=== PATIENT | male | born 1970 | race Hispanic/Latino ===

== ENCOUNTER 2017-06-04 13:11 | Emergency (ER) | payer OTHER, SELFPAY ==
--- NOTE | 2017-06-04 14:34 | RAD ---
LEFT FOOT 3 VIEWS: HISTORY: Foot pain. FINDINGS: There is chronic deformity to the tuft of the distal phalanx of the great toe. Calcaneal spurs are p resent. There is some bony exostosis seen on the dorsal side of the foot at the level of the metatar sals. This is seen on the lateral view. This is probably related to the first metatarsal. IMPRESSION: No acute findings. POS: [facility]
[2017-06-04 15:39] LABS: #Eosinphils 0.4 thou/uL (0.0-0.7); #Lymphocytes 1.3 thou/uL (1.20-3.40); #Monocytes 0.5 thou/uL (0.11-0.59); #Neutrophils 8.7 thou/uL (1.40-6.50); %Basophils 0.2 % (0.0-1.0); %Lymphocytes 11.8 % (21.0-51.0); %Monocytes 4.7 % (0.0-10.0); Hematocrit 44.2 % (42.0-52.0); Mean Platelet Volume 8.1 fL (7.4-10.4); Red Blood Cell (RBC) Count 5.36 mill/uL (4.70-6.10); White Blood Cell (WBC) Count 10.9 thou/uL (4.8-10.8)
--- NOTE | 2017-06-04 15:55 | RAD ---
PORTABLE CHEST: 06/04/17 HISTORY: Dyspnea. COMPARISON: 11/23/16 study. The heart size appears slightly enlarged. The aorta is tortuous. The lungs are clear of infiltrates. There are no signs of failure. IMPRESSION: Mild cardiomegaly. POS: [facility]
[2017-06-04 16:02] LABS: ALT (SGPT) 27 U/L (8-55); AST (SGOT) 24 U/L (5-34); Alkaline Phosphatase 117 U/L (40-150); Anion Gap 12 mmol/L (10-20); BUN (Urea Nitrogen) 17 mg/dL (8.9-20.6); Bilirubin, Total 0.6 mg/dL (0.2-1.2); CK (CPK) 255 U/L (30-200); Calc. Creatinine Clearance 0 mL/min (70-130); Carbon Dioxide 25 mmol/L (22-29); Chloride 105 mmol/L (98-107); Estimated GFR-MDRD 75; Globulin 3.7 g/dL (2.4-3.5); Protein, Total 7.6 g/dL (6.0-8.3)
[2017-06-04 16:07] LABS: Troponin I Less than 0.010 ng/mL (< 0.028)
[2017-06-04 17:26] LABS: Bilirubin Negative (Negative); Blood, Urine Negative (Negative); Glucose, Urine (Dipstick) Negative (Negative); Ketone, Urine Negative (Negative); Nitrite Negative (Negative); Protein, Urine (Dipstick) Trace mg/dL (Neg-Trace)
[2017-06-04] MEDS ORDERED: Morphine 4 MG/ML VIAL ONE (18:25)
--- NOTE | 2017-06-04 18:48 | MRI ---
MRI OF THE LUMBAR SPINE WITH AND WITHOUT CONTRAST 06/04/17 INDICATION: Cauda equina syndrome with low back pain and left foot numbness. TECHNIQUE: Multiplanar and multisequence MR images were obtained of the lumbar spine with and without contrast u tilizing 20 mL of Multihance. FINDINGS: There is diffuse epidural lipomatosis of the lumbar spine narrowing the central canal of the lumbar s pine. There is a focus of T2 hyperintensity that causes some displacement of the nerve roots at the L2 vert ebral level on image 16 of series 5 and image 10 of series 2 measuring 10 mm in its greatest cranioca udad dimension and 7 mm in its greatest mediolateral dimensions with no appreciable enhancement. This lesion may be related to some flow related artifacts from displacement of the roots as they are exte nding off of the cauda equina; however, small arachnoid cyst, dermoid or epidermoid tumor cannot be e ntirely excluded. There is a focus of T2 hyperintensity and heterogeneous T1 signal intensity enhancement involving the left pedicle of L2 most suspicious for hemangioma. Additional smaller hemangioma seen at T12. The co nus is seen to terminate at L1. At the L5-S1 level, there is a small central protrusion causing effacement of the ventral subarachnoi d space. There is a broad based disc bulge and associated facet hypertrophy inducing mild bilateral n eural foraminal narrowing. At L4-5, there is a broad based bulge with superimposed central protrusion and ligamentum flavum hype rtrophy inducing moderate central canal narrowing with moderate bilateral neural foraminal narrowing. At L3-4, there is a broad based bulge with facet hypertrophy inducing mild to moderate right and mode rate left neural foraminal narrowing. There is mild central canal narrowing at this level. At L2-3, there is a broad based bulge with facet hypertrophy inducing mild bilateral neural foraminal narrowing. At L1-2, there is no appreciable central canal or neural foraminal narrowing. IMPRESSION: 1. Epidural lipomatosis, broad based disc bulge, central disc protrusion and facet hypertrophy i nduces moderate central canal narrowing at L4-5 with moderate bilateral neural foraminal narrowing. 2. Multilevel central canal narrowing of the lumbar spine due to epidural lipomatosis. 3. T2 hyperintense, T1 hypointense nonenhancing intradural/extramedullary lesion seen at the L2 vertebral body level may reflect flow related artifact involving roots of the lumbar spine; however, entities such as arachnoid cyst or dermoid/epidermal tumor cannot be entirely excluded. Short term MR followup is recommended (3 to 6 months). POS: [facility]
--- NOTE | 2017-06-04 20:27 | CON ---
This is Tamara Saenz, Physician Indexer, with Neurosurgery Service. DATE OF CONSULTATION: 06/04/2017 HISTORY OF PRESENT ILLNESS: The patient is a 47-year-old male with a past medical history of hypertension and enlarged heart, not currently on any medications, who presented to the Emergency Department for numbness and weakness in the left foot, which began 2 days ago. The patient reports a long history of low back pain, which began many years ago after a lifting injury at work. He reports he has baseline chronic pain in his low back that is not significantly changed over the past several days. He denies any radicular leg pain. Numbness is primarily located over the top of the left foot and he has inability to dorsiflex the left foot. The patient also reports intermittent numbness and tingling in the saddle region; however, he reports this has been intermittent for years and he has had no appreciable numbness or tingling in the groin or saddle region over the last 2 weeks. He denies any bowel or bladder dysfunction. The patient was evaluated with lumbar MRI for r/o cauda equina. MRI was notable for multilevel degenerative disk disease, most increased over L4-L5 and L3-L4. There is moderate amount of central canal stenosis at L4-L5. PAST MEDICAL HISTORY: Hypertension "enlarged heart," chronic back pain, coronary artery disease with prior acute AL. PAST SURGICAL HISTORY: He denies any prior surgical history. SOCIAL HISTORY: The patient does not drink or use any drugs. He smokes one- half pack per day for the last 20 years. FAMILY HISTORY: Noncontributory. ALLERGIES: The patient has no known drug allergies. REVIEW OF SYSTEMS: Per HPI. PHYSICAL EXAM- BP elevate 170/122, remaider VS wnl NAD, Comfortable sitting in chair in ER room 11 NCAT PERRL, EOMI, Scerla white OP clear, normal voice Neck supple, NTTP, no meningismus or nuchal rigidity Cardiac RRR. Lungs CTAB MSK- Moves all 4s, focal weakness with dorsiflexion of the left foot, no reflex assymetry NEURO- Foot drop gait on the left, normal CN exam, negative hoffmans, negative clonus DIAGNOSTIC STUDIES: Lumbar MRI with and without contrast, epidural lipomatosis , degenerative disk disease with broad based disk bulge and central disk protrusion with moderate L4-L5 central canal narrowing and moderate bilateral neural foraminal narrowing. ASSESSMENT: Lumbar degenerative disk disease, lumbar stenosis with myelopathy/ left foot drop. PLAN: I have discussed the patient's presentation, exam and imaging with Dr. Salazar. We will plan to start the patient on a Medrol Dosepak and follow along closely with repeat exam and office follow up early this week. I will arrange. I have recommended an AFO brace, which the patient should wear to avoid any falls. He has been provided with a Rx for which is was advised to take to [facility] on tuesday. The patient is amenable to this plan and he will reach out to us for any additional questions or concerns. TEMI
--- NOTE | 2017-06-14 13:23 | EKG ---
Test Reason : Blood Pressure : / mmHG Vent. Rate : 090 BPM Atrial Rate : 090 BPM P-R Int : 132 ms QRS Dur : 100 ms QT Int : 392 ms P-R-T Axes : 071 -05 -15 degrees QTc Int : 479 ms Normal sinus rhythm Normal ECG Confirmed by ALFONSO HESS ([id number]), clinical editor NANETTE DEMARCO ([id number]) on 06/14/2017 1:23:23 PM Referred By: Confirmed By:ALFONSO HESS
== END 2017-06-04 20:39 | disposition home or self-care (01) ==
LOC: ERS 13:11
DX: M21.372 Foot drop, left foot (principal); M51.86 Other intervertebral disc disorders, lumbar region; I25.10 Atherosclerotic heart disease of native coronary artery without angina pectoris; I25.2 Old myocardial infarction; I10 Essential (primary) hypertension; F17.210 Nicotine dependence, cigarettes, uncomplicated; Z87.01 Personal history of pneumonia (recurrent)
CPT/HCPCS: 71010; 72158; 80053; 81003; 82550; 82553; 83880; 84484; 85025; 93005; 94760; 96374; J2270

== ENCOUNTER 2019-06-13 15:13 | Emergency (ER) | payer OTHER, SELFPAY ==
--- NOTE | 2019-06-13 16:42 | RAD ---
EXAM: Chest PA and lateral: HISTORY: Cough COMPARISON: 06/04/2017 FINDINGS: Heart: Cardiomegaly. Aorta: Unremarkable Pulmonary vessels: Normal Costophrenic angles: Costophrenic angles are clear. Lungs: Patchy interstitial and alveolar opacities, likely representing edema and/or infiltrate Pneumothorax: No pneumothorax Osseous structures: No osseous abnormalities IMPRESSION: Patchy interstitial and alveolar opacities likely due to edema and/or infiltrate
[2019-06-13] MEDS ORDERED: Lidocaine 1% PF 5 ML VIAL ONE (16:49)
[2019-06-13] MEDS ORDERED: Ketorolac Tromethamine 60 MG/2 ML VIAL ONE (16:49)
[2019-06-13] MEDS ORDERED: cefTRIAXone\\ROCEPHIN 1 GM VIAL ONE (16:49)
== END 2019-06-13 17:42 | disposition home or self-care (01) ==
LOC: ERS 15:13
DX: J18.9 Pneumonia, unspecified organism (principal); I25.10 Atherosclerotic heart disease of native coronary artery without angina pectoris; I25.2 Old myocardial infarction; I10 Essential (primary) hypertension; F17.210 Nicotine dependence, cigarettes, uncomplicated
CPT/HCPCS: 71046; 87804; 94640; 96372; J0696; J1885; J2001; J7620

== ENCOUNTER 2020-12-21 16:21 | Inpatient (IN) | payer SELFPAY ==
[2020-12-21 16:53] LABS: #Lymphocytes 0.9 thou/uL (1.20-3.40); #Monocytes 0.8 thou/uL (0.11-0.59); #Neutrophils 8.2 thou/uL (1.40-6.50); %Basophils 0.1 % (0.0-1.0); %Eosinophils 0.5 % (0.0-10.0); %Lymphocytes 9.2 % (21.0-51.0); %Monocytes 7.7 % (0.0-10.0); %Neutrophils 82.5 % (42.0-75.0); Hemoglobin 13.7 g/dL (14.0-18.0); Mean Corpuscular HGB CONC 34.6 g/dL (32.0-36.0); Mean Corpuscular Hemoglobin 27.8 pg (27.0-31.0); Mean Corpuscular Volume 80.3 fL (78.0-98.0); Mean Platelet Volume 8.4 fL (7.4-10.4); Platelet Count 160 thou/uL (130-400); RBC Distribution Width 13.7 % (11.5-14.5); Red Blood Cell (RBC) Count 4.93 mill/uL (4.70-6.10); White Blood Cell (WBC) Count 9.9 thou/uL (4.8-10.8)
[2020-12-21 17:14] LABS: ALT (SGPT) 22 U/L (8-55); AST (SGOT) 12 U/L (5-34); Alkaline Phosphatase 107 U/L (40-110); Anion Gap 14 mmol/L (10-20); BUN (Urea Nitrogen) 11 mg/dL (8.9-20.6); Bilirubin, Total 1.8 mg/dL (0.2-1.2); Calc. Creatinine Clearance 0 mL/min (70-130); Calcium 9.2 mg/dL (7.8-10.44); Carbon Dioxide 20 mmol/L (22-29); Chloride 98 mmol/L (98-107); Globulin 3.2 g/dL (2.4-3.5); Glucose 402 mg/dL (70-105); Lipase 11 U/L (8-78); Potassium 3.4 mmol/L (3.5-5.1); Protein, Total 7.2 g/dL (6.0-8.3); Sodium 129 mmol/L (136-145)
[2020-12-21] MEDS ORDERED: Nitroglycerin 2% Ointment 1 INCH/1 GM Packet ONE (17:18)
[2020-12-21] MEDS ORDERED: Acetaminophen 500 MG TAB ONE (17:18)
[2020-12-21] MEDS ORDERED: Aspirin Chewable 81 MG TAB ONE (17:18)
[2020-12-21 19:24] LABS: Bacteria/HPF None Seen HPF (None Seen); Bilirubin Negative (Negative); Blood, Urine 2+ (Negative); Clarity Clear (Clear); Glucose, Urine (Dipstick) Greater than 1000 mg/dL (Negative); Ketone, Urine Negative (Negative); Leukocyte 250 Leu/uL (Negative); Nitrite Negative (Negative); Protein, Urine (Dipstick) 20 mg/dL (Neg-Trace); Squamous Epithelial None Seen HPF (0-3); Urobilinogen Normal mg/dL (Less than 2); WBC/HPF Greater than 50 HPF (0-3); pH, Urine 6.5 (5.0-9.0)
[2020-12-21] MEDS ORDERED: Nitroglycerin 0.4 MG TAB (25 Tab Bottle) SL PRN (20:12)
[2020-12-21] MEDS ORDERED: Dextrose 50% Abboject 50 ML SYRINGE SLOW IVP PRN (20:29)
[2020-12-21] MEDS ORDERED: Dextrose 5% in Water 1,000 ML IV PRN (20:29)
[2020-12-21] MEDS ORDERED: Potassium Chloride 20 MEQ TAB PO SCH (20:30)
[2020-12-21] MEDS ORDERED: Sodium Chloride 0.9% 1,000 ML IV SCH (20:30)
[2020-12-21] MEDS ORDERED: cefTRIAXone\\ROCEPHIN 1 GM VIAL ONE (21:25)
[2020-12-21 21:30] LABS: Troponin I Less than 0.010 ng/mL (< 0.028)
[2020-12-21 21:54] LABS: SARS-CoV-2 PCR by NAA Not Detected (NotDetected)
[2020-12-21 22:45] VITALS: BMI 39.2
[2020-12-21] MEDS: cefTRIAXone\\ROCEPHIN 1 GM in Sodium Chloride 0.9% 100 ML IVPB SCH (23:13)
[2020-12-21 23:37] LABS: Troponin I Less than 0.010 ng/mL (< 0.028)
[2020-12-21] MEDS: Ondansetron PF 4 MG/2 ML Vial IVP PRN (23:54)
[2020-12-21] MEDS ORDERED: methylPREDNISolone Sod Succ 40 MG VIAL IVP SCH (23:59)
[2020-12-21] MEDS: Ketorolac Tromethamine 30 MG/ML VIAL IVP PRN (23:59)
[2020-12-22] MEDS: Calcium Carbonate 500 MG ChewTAB PO PRN ×4 (00:06→22:05)
[2020-12-22] MEDS: HumaLOG 300 UNITS/3 ML VIAL SC PRN ×5 (00:07→22:03)
[2020-12-22] MEDS: Acetaminophen 325 MG TAB PO PRN ×3 (00:09→16:08)
[2020-12-22 05:50] LABS: Cardiac Risk 3.4 (Less than 4.5)
[2020-12-22] MEDS: Ondansetron PF 4 MG/2 ML Vial IVP PRN ×3 (06:20→20:16)
[2020-12-22] MEDS: Ketorolac Tromethamine 30 MG/ML VIAL IVP PRN ×3 (06:24→20:16)
[2020-12-22] MEDS: Aspirin Chewable 81 MG TAB PO SCH (09:46)
[2020-12-22] MEDS: Nicotine 21 MG PATCH TD SCH (09:47)
[2020-12-22] MEDS ORDERED: Carvedilol 25 MG TAB PO SCH (16:00)
[2020-12-22] MEDS: Carvedilol 25 MG TAB PO SCH (20:16)
[2020-12-22] MEDS ORDERED: Lantus 1000 UNITS/10 ML VIAL SC SCH (21:00)
[2020-12-22] MEDS: cefTRIAXone\\ROCEPHIN 1 GM in Sodium Chloride 0.9% 100 ML IVPB SCH (22:05)
[2020-12-23] MEDS: Calcium Carbonate 500 MG ChewTAB PO PRN (03:36)
[2020-12-23] MEDS: Acetaminophen 325 MG TAB PO PRN (05:01)
[2020-12-23] MEDS: HumaLOG 300 UNITS/3 ML VIAL SC PRN ×2 (07:15→15:47)
[2020-12-23] MEDS: Aspirin Chewable 81 MG TAB PO SCH (07:58)
[2020-12-23] MEDS: Ondansetron PF 4 MG/2 ML Vial IVP PRN ×2 (08:01→14:18)
[2020-12-23] MEDS: Ketorolac Tromethamine 30 MG/ML VIAL IVP PRN ×2 (08:06→14:19)
[2020-12-23] MEDS: Nicotine 21 MG PATCH TD SCH (08:51)
[2020-12-23] MEDS: Carvedilol 25 MG TAB PO SCH (08:51)
[2020-12-23 11:35] LABS: #Eosinphils 0.1 thou/uL (0.0-0.7); #Lymphocytes 0.7 thou/uL (1.20-3.40); #Monocytes 0.6 thou/uL (0.11-0.59); %Basophils 0.1 % (0.0-1.0); %Eosinophils 2.2 % (0.0-10.0); %Lymphocytes 11.3 % (21.0-51.0); %Monocytes 9.6 % (0.0-10.0); %Neutrophils 76.8 % (42.0-75.0); Hemoglobin 12.4 g/dL (14.0-18.0); Mean Corpuscular Hemoglobin 26.4 pg (27.0-31.0); Mean Corpuscular Volume 82.5 fL (78.0-98.0); Mean Platelet Volume 8.4 fL (7.4-10.4); Platelet Count 140 thou/uL (130-400); RBC Distribution Width 13.7 % (11.5-14.5); White Blood Cell (WBC) Count 6.5 thou/uL (4.8-10.8)
[2020-12-23 11:48] LABS: Hemoglobin A1c Greater than 14.0 % (4.0-6.0)
[2020-12-23 11:57] LABS: Anion Gap 14 mmol/L (10-20); BUN (Urea Nitrogen) 16 mg/dL (8.9-20.6); Calc. Creatinine Clearance 129 mL/min (70-130); Calcium 8.7 mg/dL (7.8-10.44); Carbon Dioxide 19 mmol/L (22-29); Chloride 101 mmol/L (98-107); Glucose 264 mg/dL (70-105); Potassium 3.9 mmol/L (3.5-5.1); Sodium 130 mmol/L (136-145)
[2020-12-23 11:59] LABS: ALT (SGPT) 17 U/L (8-55); AST (SGOT) 12 U/L (5-34); Albumin 3.5 g/dL (3.5-5.0); Alkaline Phosphatase 101 U/L (40-110); Anion Gap 14 mmol/L (10-20); BUN (Urea Nitrogen) 16 mg/dL (8.9-20.6); Bilirubin, Total 0.7 mg/dL (0.2-1.2); Calc. Creatinine Clearance 124 mL/min (70-130); Calcium 8.8 mg/dL (7.8-10.44); Carbon Dioxide 19 mmol/L (22-29); Chloride 100 mmol/L (98-107); Globulin 3.2 g/dL (2.4-3.5); Glucose 268 mg/dL (70-105); Potassium 3.6 mmol/L (3.5-5.1); Protein, Total 6.7 g/dL (6.0-8.3); Sodium 129 mmol/L (136-145)
[2020-12-23 15:51] VITALS: BP 158/72; TEMP 97.8
== END 2020-12-23 18:21 | disposition home or self-care (01) | DRG 313 ==
LOC: ERS 16:21 → 2SW 18:20 → OBSVTOIN 12-22 16:06
PROVIDERS: ADMIT Internal Medicine; ATTEND Internal Medicine
DX: R07.89 Other chest pain (principal); G93.41 Metabolic encephalopathy; N17.9 Acute kidney failure, unspecified; I69.351 Hemiplegia and hemiparesis following cerebral infarction affecting right dominant side; E87.1 Hypo-osmolality and hyponatremia; E11.22 Type 2 diabetes mellitus with diabetic chronic kidney disease; E87.6 Hypokalemia; I12.9 Hypertensive chronic kidney disease with stage 1 through stage 4 chronic kidney disease, or unspecified chronic kidney disease; E11.65 Type 2 diabetes mellitus with hyperglycemia; E78.5 Hyperlipidemia, unspecified; Z20.822 Contact with and (suspected) exposure to COVID-19; N18.30 Chronic kidney disease, stage 3 unspecified; G89.29 Other chronic pain; M54.9 Dorsalgia, unspecified; Z98.890 Other specified postprocedural states; Z87.891 Personal history of nicotine dependence
CPT/HCPCS: 36415; 36416; 70450; 70551; 71045; 78452; 80053; 80061; 81003; 81015; 83036; 83690; 84443; 84484; 85025; 87040; 87086; 93005; 93017; 93306; 93880; 94760; 95712; 95819; 95957; 96366; 96375; 96376; A9500; G0378; J0153; J0696; J1815; J1885; J2405; J3490; U0003; U0005

== ENCOUNTER 2020-12-26 11:18 | Observation (INO) | payer SELFPAY ==
[2020-12-26] MEDS ORDERED: Ondansetron PF 4 MG/2 ML Vial ONE ×2 (11:50→13:46)
[2020-12-26] MEDS ORDERED: Aspirin Chewable 81 MG TAB ONE (11:50)
[2020-12-26] MEDS ORDERED: Nitroglycerin 2% Ointment 1 INCH/1 GM Packet ONE (11:50)
[2020-12-26 11:51] LABS: #Eosinphils 0.2 thou/uL (0.0-0.7); #Lymphocytes 1.6 thou/uL (1.20-3.40); #Monocytes 0.8 thou/uL (0.11-0.59); #Neutrophils 7.1 thou/uL (1.40-6.50); %Basophils 0.3 % (0.0-1.0); %Eosinophils 2.1 % (0.0-10.0); %Lymphocytes 16.4 % (21.0-51.0); %Monocytes 7.8 % (0.0-10.0); %Neutrophils 73.4 % (42.0-75.0); Hemoglobin 13.6 g/dL (14.0-18.0); Mean Corpuscular HGB CONC 33.6 g/dL (32.0-36.0); Mean Corpuscular Hemoglobin 26.8 pg (27.0-31.0); Mean Corpuscular Volume 79.9 fL (78.0-98.0); Mean Platelet Volume 7.8 fL (7.4-10.4); Platelet Count 257 thou/uL (130-400); RBC Distribution Width 13.5 % (11.5-14.5); Red Blood Cell (RBC) Count 5.05 mill/uL (4.70-6.10); White Blood Cell (WBC) Count 9.7 thou/uL (4.8-10.8)
[2020-12-26 12:10] LABS: ALT (SGPT) 21 U/L (8-55); AST (SGOT) 15 U/L (5-34); Albumin 3.9 g/dL (3.5-5.0); Alkaline Phosphatase 105 U/L (40-110); Anion Gap 13 mmol/L (10-20); BUN (Urea Nitrogen) 9 mg/dL (8.9-20.6); Bilirubin, Total 0.5 mg/dL (0.2-1.2); CK (CPK) 62 U/L (30-200); Calc. Creatinine Clearance 0 mL/min (70-130); Calcium 9.4 mg/dL (7.8-10.44); Carbon Dioxide 25 mmol/L (22-29); Chloride 98 mmol/L (98-107); Globulin 3.6 g/dL (2.4-3.5); Glucose 221 mg/dL (70-105); Magnesium 1.9 mg/dL (1.6-2.6); Potassium 3.3 mmol/L (3.5-5.1); Protein, Total 7.5 g/dL (6.0-8.3); Sodium 133 mmol/L (136-145)
[2020-12-26] MEDS ORDERED: Acetaminophen 500 MG TAB ONE (13:46)
[2020-12-26] MEDS ORDERED: Amlodipine 5 MG TAB PO SCH (16:00)
[2020-12-26] MEDS ORDERED: Ondansetron PF 4 MG/2 ML Vial IVP PRN (16:32)
[2020-12-26] MEDS ORDERED: Ondansetron ODT 4 MG TAB PO PRN (16:32)
[2020-12-26 16:54] VITALS: BMI 5420.9
[2020-12-26] MEDS: Acetaminophen 325 MG TAB PO PRN (18:01)
[2020-12-26] MEDS ORDERED: Dextrose 5% in Water 1,000 ML IV PRN (18:13)
[2020-12-26] MEDS ORDERED: Dextrose 50% Abboject 50 ML SYRINGE SLOW IVP PRN (18:13)
[2020-12-26 18:25] LABS: Troponin I 0.011 ng/mL (< 0.028)
[2020-12-26] MEDS ORDERED: hydrALAZINE 25 MG TAB PO PRN ×2 (19:30→19:31)
[2020-12-26] MEDS ORDERED: hydrALAZINE 20 MG/ML VIAL SLOW IVP PRN (19:30)
[2020-12-27] MEDS: Acetaminophen 325 MG TAB PO PRN ×3 (01:39→11:21)
[2020-12-27 04:32] LABS: #Eosinphils 0.2 thou/uL (0.0-0.7); #Lymphocytes 1.5 thou/uL (1.20-3.40); #Monocytes 0.6 thou/uL (0.11-0.59); #Neutrophils 5.6 thou/uL (1.40-6.50); %Basophils 0.1 % (0.0-1.0); %Eosinophils 2.5 % (0.0-10.0); %Lymphocytes 19.1 % (21.0-51.0); %Monocytes 7.9 % (0.0-10.0); %Neutrophils 70.3 % (42.0-75.0); Hemoglobin 13.1 g/dL (14.0-18.0); Mean Corpuscular HGB CONC 34.5 g/dL (32.0-36.0); Mean Corpuscular Hemoglobin 27.8 pg (27.0-31.0); Mean Corpuscular Volume 80.4 fL (78.0-98.0); Mean Platelet Volume 7.5 fL (7.4-10.4); Platelet Count 227 thou/uL (130-400); RBC Distribution Width 13.4 % (11.5-14.5); Red Blood Cell (RBC) Count 4.72 mill/uL (4.70-6.10); White Blood Cell (WBC) Count 7.9 thou/uL (4.8-10.8)
[2020-12-27 04:58] LABS: Anion Gap 13 mmol/L (10-20); BUN (Urea Nitrogen) 7 mg/dL (8.9-20.6); Calc. Creatinine Clearance 169 mL/min (70-130); Calcium 8.5 mg/dL (7.8-10.44); Carbon Dioxide 23 mmol/L (22-29); Chloride 102 mmol/L (98-107); Glucose 171 mg/dL (70-105); Sodium 135 mmol/L (136-145)
[2020-12-27] MEDS: HumaLOG 300 UNITS/3 ML VIAL SC PRN ×2 (06:13→11:21)
[2020-12-27] MEDS ORDERED: Amlodipine 5 MG TAB PO SCH (09:00)
[2020-12-27] MEDS ORDERED: Acetaminophen 325 MG TAB PO PRN (10:57)
[2020-12-27] MEDS ORDERED: Electrolyte Replacement Protocol FS PRN (12:45)
[2020-12-27] MEDS ORDERED: Potassium Chloride 20 MEQ TAB PO SCH ×2 (12:45→17:15)
[2020-12-27 16:31] LABS: BUN (Urea Nitrogen) 8 mg/dL (8.9-20.6); Calc. Creatinine Clearance 156 mL/min (70-130); Calcium 8.9 mg/dL (7.8-10.44); Chloride 100 mmol/L (98-107); Glucose 185 mg/dL (70-105); Potassium 3.3 mmol/L (3.5-5.1); Sodium 134 mmol/L (136-145)
[2020-12-27] MEDS ORDERED: Carvedilol 25 MG TAB PO SCH (17:00)
[2020-12-27 17:35] LABS: Anion Gap 20 mmol/L (10-20); Carbon Dioxide 17 mmol/L (22-29)
[2020-12-27 17:40] VITALS: BP 166/72; TEMP 97.9
[2020-12-28] MEDS ORDERED: Atorvastatin Calcium 40 MG TAB PO SCH (09:00)
[2020-12-28] MEDS ORDERED: Aspirin Chewable 81 MG TAB PO SCH (09:00)
== END 2020-12-27 18:16 | disposition home or self-care (01) ==
LOC: ERS 11:18 → ERHOLD 15:27 → 2NO 16:09
PROVIDERS: ADMIT Internal Medicine; ATTEND Internal Medicine
DX: R42 Dizziness and giddiness (principal); I16.0 Hypertensive urgency; E87.6 Hypokalemia; E87.1 Hypo-osmolality and hyponatremia; D64.9 Anemia, unspecified; R00.1 Bradycardia, unspecified; H52.03 Hypermetropia, bilateral; I10 Essential (primary) hypertension; E11.9 Type 2 diabetes mellitus without complications; E78.00 Pure hypercholesterolemia, unspecified; F17.210 Nicotine dependence, cigarettes, uncomplicated; Z79.82 Long term (current) use of aspirin; Z79.84 Long term (current) use of oral hypoglycemic drugs; Z79.899 Other long term (current) drug therapy; Z86.73 Personal history of transient ischemic attack (TIA), and cerebral infarction without residual deficits
CPT/HCPCS: 36415; 36416; 71045; 80048; 80053; 82550; 83735; 83880; 84484; 85025; 93005; 96374; 96375; 96376; G0378; J0360; J1815; J2405

== ENCOUNTER 2021-01-07 20:35 | Emergency (ER) | payer OTHER, SELFPAY ==
[2021-01-07 21:16] LABS: #Basophils 0.1 thou/uL (0.0-0.2); #Eosinphils 0.2 thou/uL (0.0-0.7); #Lymphocytes 2.2 thou/uL (1.20-3.40); #Monocytes 0.7 thou/uL (0.11-0.59); #Neutrophils 8.5 thou/uL (1.40-6.50); %Basophils 0.5 % (0.0-1.0); %Lymphocytes 18.9 % (21.0-51.0); %Monocytes 5.7 % (0.0-10.0); %Neutrophils 72.9 % (42.0-75.0); Hemoglobin 7.7 g/dL (14.0-18.0); Mean Corpuscular HGB CONC 34.8 g/dL (32.0-36.0); Mean Corpuscular Hemoglobin 28.4 pg (27.0-31.0); Mean Corpuscular Volume 81.5 fL (78.0-98.0); Mean Platelet Volume 7.2 fL (7.4-10.4); Platelet Count 321 thou/uL (130-400); RBC Distribution Width 13.9 % (11.5-14.5); White Blood Cell (WBC) Count 11.7 thou/uL (4.8-10.8)
[2021-01-07 21:31] LABS: ALT (SGPT) 13 U/L (8-55); AST (SGOT) 11 U/L (5-34); Albumin 3.4 g/dL (3.5-5.0); Alkaline Phosphatase 58 U/L (40-110); Anion Gap 16 mmol/L (10-20); BUN (Urea Nitrogen) 46 mg/dL (8.9-20.6); Bilirubin, Total 0.5 mg/dL (0.2-1.2); Calc. Creatinine Clearance 0 mL/min (70-130); Calcium 8.3 mg/dL (7.8-10.44); Carbon Dioxide 15 mmol/L (22-29); Chloride 106 mmol/L (98-107); Globulin 2.3 g/dL (2.4-3.5); Glucose 157 mg/dL (70-105); Protein, Total 5.7 g/dL (6.0-8.3); Sodium 133 mmol/L (136-145)
[2021-01-07] MEDS ORDERED: Pantoprazole 40 MG VIAL ONE (22:11)
== END 2021-01-07 22:39 | disposition short-term general hospital (02) ==
LOC: ERS 20:35
DX: K92.2 Gastrointestinal hemorrhage, unspecified (principal); D64.9 Anemia, unspecified; I10 Essential (primary) hypertension; E11.9 Type 2 diabetes mellitus without complications; I25.10 Atherosclerotic heart disease of native coronary artery without angina pectoris; I25.2 Old myocardial infarction; F17.210 Nicotine dependence, cigarettes, uncomplicated; Z79.84 Long term (current) use of oral hypoglycemic drugs; Z79.899 Other long term (current) drug therapy; Z86.73 Personal history of transient ischemic attack (TIA), and cerebral infarction without residual deficits
CPT/HCPCS: 36415; 36416; 36430; 80053; 82274; 84484; 85025; 86850; 86900; 86901; 93005; 96374; C9113; P9016

== ENCOUNTER 2021-03-31 00:19 | Inpatient (IN) | payer OTHER, SELFPAY ==
[2021-03-31 01:30] LABS: #Eosinphils 0.1 thou/uL (0.0-0.7); #Lymphocytes 0.7 thou/uL (1.20-3.40); #Monocytes 0.4 thou/uL (0.11-0.59); #Neutrophils 10.8 thou/uL (1.40-6.50); %Basophils 0.2 % (0.0-1.0); %Eosinophils 0.6 % (0.0-10.0); %Lymphocytes 5.4 % (21.0-51.0); %Monocytes 3.7 % (0.0-10.0); %Neutrophils 90.1 % (42.0-75.0); Hemoglobin 11.2 g/dL (14.0-18.0); Mean Corpuscular HGB CONC 32.3 g/dL (32.0-36.0); Mean Corpuscular Hemoglobin 24.8 pg (27.0-31.0); Mean Corpuscular Volume 76.8 fL (78.0-98.0); Mean Platelet Volume 8.1 fL (7.4-10.4); Platelet Count 240 thou/uL (130-400); RBC Distribution Width 14.3 % (11.5-14.5)
[2021-03-31] MEDS ORDERED: Dexamethasone 10 MG/ML VIAL ONE ×2 (01:41→10:33)
[2021-03-31 01:44] LABS: ALT (SGPT) 23 U/L (8-55); AST (SGOT) 18 U/L (5-34); Albumin 3.7 g/dL (3.5-5.0); Alkaline Phosphatase 134 U/L (40-110); Anion Gap 12 mmol/L (10-20); BUN (Urea Nitrogen) 11 mg/dL (8.9-20.6); Bilirubin, Total 0.8 mg/dL (0.2-1.2); CK (CPK) 108 U/L (30-200); Calc. Creatinine Clearance 0 mL/min (70-130); Calcium 8.4 mg/dL (7.8-10.44); Carbon Dioxide 23 mmol/L (22-29); Chloride 103 mmol/L (98-107); Globulin 3.3 g/dL (2.4-3.5); Glucose 140 mg/dL (70-105); Potassium 3.3 mmol/L (3.5-5.1); Sodium 135 mmol/L (136-145)
[2021-03-31 03:54] LABS: SARS-CoV-2 NAA Rapid Test DETECTED (NotDetected)
[2021-03-31] MEDS ORDERED: Dextrose 50% Abboject 50 ML SYRINGE SLOW IVP PRN (09:55)
[2021-03-31] MEDS ORDERED: Dextrose 5% in Water 1,000 ML IV PRN (09:55)
[2021-03-31] MEDS ORDERED: Potassium Chloride 20 MEQ TAB PO SCH (10:00)
[2021-03-31] MEDS ORDERED: Aspirin Chewable 81 MG TAB ONE (10:33)
[2021-03-31] MEDS ORDERED: Potassium Chloride 20 MEQ TAB ONE (10:33)
[2021-03-31] MEDS ORDERED: cefTRIAXone\\ROCEPHIN 1 GM VIAL ONE (10:33)
[2021-03-31] MEDS ORDERED: Enoxaparin Sodium 40 MG/0.4 ML SYRINGE ONE (10:33)
[2021-03-31] MEDS ORDERED: Azithromycin 500 MG VIAL ONE (10:35)
[2021-03-31] MEDS: Aspirin Chewable 81 MG TAB PO SCH (10:57)
[2021-03-31] MEDS: cefTRIAXone\\ROCEPHIN 1 GM in Sodium Chloride 0.9% 100 ML IVPB SCH ×2 (10:58→11:51)
[2021-03-31] MEDS: Azithromycin 500 MG in Sodium Chloride 0.9% 250 ML 250 ML IVPB SCH (12:11)
[2021-03-31] MEDS ORDERED: Carvedilol 6.25 MG TAB PO SCH ×3 (14:15→21:00)
[2021-03-31] MEDS ORDERED: BARICITINIB 2 MG TAB PO SCH (14:45)
[2021-03-31] MEDS ORDERED: Ondansetron PF 4 MG/2 ML Vial IVP PRN (15:20)
[2021-03-31] MEDS: Acetaminophen 325 MG TAB PO PRN (15:40)
[2021-03-31] MEDS: Lorazepam 0.5 MG TAB PO PRN ×2 (15:41→20:30)
[2021-03-31] MEDS ORDERED: Carvedilol 25 MG TAB PO SCH (17:00)
[2021-04-01] MEDS ORDERED: Lorazepam 2 MG/ML VIAL SLOW IVP PRN (02:36)
[2021-04-01] MEDS: HumaLOG 300 UNITS/3 ML VIAL SC PRN (05:19)
[2021-04-01 07:18] LABS: #Lymphocytes 0.9 thou/uL (1.20-3.40); #Monocytes 0.6 thou/uL (0.11-0.59); #Neutrophils 17.2 thou/uL (1.40-6.50); %Eosinophils 0.2 % (0.0-10.0); %Lymphocytes 4.7 % (21.0-51.0); %Neutrophils 92.1 % (42.0-75.0); Hemoglobin 11.3 g/dL (14.0-18.0); Mean Corpuscular HGB CONC 30.9 g/dL (32.0-36.0); Mean Platelet Volume 7.6 fL (7.4-10.4); Platelet Count 365 thou/uL (130-400); RBC Distribution Width 14.5 % (11.5-14.5); White Blood Cell (WBC) Count 18.7 thou/uL (4.8-10.8)
[2021-04-01 07:34] LABS: ALT (SGPT) 21 U/L (8-55); AST (SGOT) 17 U/L (5-34); Albumin 3.5 g/dL (3.5-5.0); Alkaline Phosphatase 130 U/L (40-110); Anion Gap 15 mmol/L (10-20); BUN (Urea Nitrogen) 22 mg/dL (8.9-20.6); Bilirubin, Total 0.4 mg/dL (0.2-1.2); Calc. Creatinine Clearance 180 mL/min (70-130); Calcium 8.2 mg/dL (7.8-10.44); Carbon Dioxide 20 mmol/L (22-29); Chloride 106 mmol/L (98-107); Globulin 3.4 g/dL (2.4-3.5); Glucose 166 mg/dL (70-105); Potassium 4.1 mmol/L (3.5-5.1); Protein, Total 6.9 g/dL (6.0-8.3); Sodium 137 mmol/L (136-145)
[2021-04-01] MEDS: BARICITINIB 2 MG TAB PO SCH (08:27)
[2021-04-01] MEDS: Aspirin Chewable 81 MG TAB PO SCH (08:28)
[2021-04-01] MEDS: Carvedilol 6.25 MG TAB PO SCH ×2 (08:28→17:17)
[2021-04-01] MEDS: cefTRIAXone\\ROCEPHIN 1 GM in Sodium Chloride 0.9% 100 ML IVPB SCH (08:28)
[2021-04-01 08:38] LABS: Actual Bicarbonate (HCO3a) 23.7 mEq/L (22-28); Base Excess (BEa) 0.6 mEq/L (-2.0 to +3.0); CO2 Tension 33.3 mmHg (35.0-45.0); Calcium, Ionized (arterial) 1.12 mmol/L (1.12-1.30); Carboxyhemoglobin (COHb) 0.3 gm% (0.0-3.0); Potassium - ABG Lab 4.01 mmol/L (3.70-5.30); pH, Arterial 7.47 (7.35-7.45)
[2021-04-01 08:39] LABS: O2 Tension (PaO2), arterial 56.3 mmHg (80.0-100.0)
[2021-04-01 08:40] LABS: ALV-art Gradient 443.955 mmHg (0-20); Puncture Site LRA
[2021-04-01] MEDS ORDERED: Dexamethasone 10 MG/ML VIAL SLOW IVP SCH ×2 (09:00)
[2021-04-01] MEDS ORDERED: Dexamethasone 10 MG in Sodium Chloride 0.9% 50 ML IVPB SCH (09:00)
[2021-04-01] MEDS ORDERED: Enoxaparin Sodium 40 MG/0.4 ML SYRINGE SC SCH ×2 (09:00)
[2021-04-01] MEDS: Acetaminophen 325 MG TAB PO PRN (10:30)
[2021-04-01] MEDS: Azithromycin 500 MG in Sodium Chloride 0.9% 250 ML 250 ML IVPB SCH (12:12)
[2021-04-01] MEDS: methylPREDNISolone Sod Succ/PF 125 MG in Sodium Chloride 0.9% 250 ML 250 ML IVPB SCH (18:00)
[2021-04-01] MEDS: Lorazepam 2 MG/ML VIAL SLOW IVP PRN (20:45)
[2021-04-01] MEDS: Enoxaparin Sodium 80 MG/0.8 ML SYRINGE SC SCH (20:45)
[2021-04-02] MEDS: Lorazepam 2 MG/ML VIAL SLOW IVP PRN (03:37)
[2021-04-02 04:01] LABS: Anion Gap 15 mmol/L (10-20); BUN (Urea Nitrogen) 29 mg/dL (8.9-20.6); CRP (Inflammatory) 12.51 mg/dL (= or < 0.5); Calc. Creatinine Clearance 165 mL/min (70-130); Calcium 8.4 mg/dL (7.8-10.44); Carbon Dioxide 21 mmol/L (22-29); Chloride 107 mmol/L (98-107); Glucose 160 mg/dL (70-105); Potassium 4.7 mmol/L (3.5-5.1); Sodium 138 mmol/L (136-145)
[2021-04-02 04:14] LABS: Hemoglobin 11.8 g/dL (14.0-18.0); Mean Corpuscular HGB CONC 31.8 g/dL (32.0-36.0); Mean Corpuscular Hemoglobin 24.7 pg (27.0-31.0); Mean Corpuscular Volume 77.7 fL (78.0-98.0); Mean Platelet Volume 7.9 fL (7.4-10.4); Platelet Count 396 thou/uL (130-400); RBC Distribution Width 14.5 % (11.5-14.5); Red Blood Cell (RBC) Count 4.76 mill/uL (4.70-6.10); White Blood Cell (WBC) Count 21.1 thou/uL (4.8-10.8)
[2021-04-02 04:50] LABS: Band 7 % (5-11); Lymphocytes 3 % (21-51); MDiff Complete? YES; Monocytes 1 % (0-10); Neutrophil 89 % (42-75)
[2021-04-02] MEDS: HumaLOG 300 UNITS/3 ML VIAL SC PRN ×4 (06:31→21:29)
[2021-04-02] MEDS: BARICITINIB 2 MG TAB PO SCH (08:53)
[2021-04-02] MEDS: Carvedilol 6.25 MG TAB PO SCH ×2 (08:53→16:21)
[2021-04-02] MEDS: Aspirin Chewable 81 MG TAB PO SCH (08:53)
[2021-04-02] MEDS: Enoxaparin Sodium 80 MG/0.8 ML SYRINGE SC SCH ×2 (08:54→21:32)
[2021-04-02] MEDS: cefTRIAXone\\ROCEPHIN 1 GM in Sodium Chloride 0.9% 100 ML IVPB SCH (09:56)
[2021-04-02] MEDS: Azithromycin 500 MG in Sodium Chloride 0.9% 250 ML 250 ML IVPB SCH (10:11)
[2021-04-02] MEDS: methylPREDNISolone Sod Succ/PF 125 MG in Sodium Chloride 0.9% 250 ML 250 ML IVPB SCH (18:05)
[2021-04-03] MEDS: Acetaminophen 325 MG TAB PO PRN (04:32)
[2021-04-03] MEDS: HumaLOG 300 UNITS/3 ML VIAL SC PRN ×4 (06:13→20:28)
[2021-04-03 06:28] LABS: Band 2 % (5-11); Hemoglobin 11.3 g/dL (14.0-18.0); Hypochromia SLIGHT = 6-15 cells (100X) (0-5/hpf); Lymphocytes 22 % (21-51); MDiff Complete? YES; Mean Corpuscular HGB CONC 32.4 g/dL (32.0-36.0); Mean Corpuscular Hemoglobin 24.8 pg (27.0-31.0); Mean Corpuscular Volume 76.4 fL (78.0-98.0); Mean Platelet Volume 7.6 fL (7.4-10.4); Monocytes 6 % (0-10); Neutrophil 70 % (42-75); Platelet Count 431 thou/uL (130-400); Platelet Morphology Comment Appears Increased; RBC Distribution Width 14.5 % (11.5-14.5); Red Blood Cell (RBC) Count 4.56 mill/uL (4.70-6.10); White Blood Cell (WBC) Count 18.7 thou/uL (4.8-10.8)
[2021-04-03 06:40] LABS: Anion Gap 16 mmol/L (10-20); BUN (Urea Nitrogen) 29 mg/dL (8.9-20.6); Calc. Creatinine Clearance 151 mL/min (70-130); Carbon Dioxide 20 mmol/L (22-29); Chloride 104 mmol/L (98-107); Glucose 160 mg/dL (70-105); Potassium 4.5 mmol/L (3.5-5.1); Sodium 135 mmol/L (136-145)
[2021-04-03] MEDS: Enoxaparin Sodium 80 MG/0.8 ML SYRINGE SC SCH ×2 (08:33→20:27)
[2021-04-03] MEDS: BARICITINIB 2 MG TAB PO SCH (08:33)
[2021-04-03] MEDS: Carvedilol 6.25 MG TAB PO SCH ×2 (08:34→17:33)
[2021-04-03] MEDS: Aspirin Chewable 81 MG TAB PO SCH (08:34)
[2021-04-03] MEDS ORDERED: Bisacodyl 5 MG TAB PO PRN (09:28)
[2021-04-03] MEDS: cefTRIAXone\\ROCEPHIN 1 GM in Sodium Chloride 0.9% 100 ML IVPB SCH (10:15)
[2021-04-03] MEDS: Azithromycin 500 MG in Sodium Chloride 0.9% 250 ML 250 ML IVPB SCH (10:15)
[2021-04-03] MEDS: methylPREDNISolone Sod Succ/PF 125 MG in Sodium Chloride 0.9% 250 ML 250 ML IVPB SCH (20:27)
[2021-04-04] MEDS: Acetaminophen 325 MG TAB PO PRN (00:59)
[2021-04-04] MEDS: Benzonatate 100 MG CAP PO PRN ×3 (02:06→19:57)
[2021-04-04 05:16] LABS: Anisocytosis MODERATE=16-30 cells (100X) (0-5/hpf); Band 3 % (5-11); Eosinophils 4 % (0-10); Hemoglobin 11.5 g/dL (14.0-18.0); Hypochromia SLIGHT = 6-15 cells (100X) (0-5/hpf); Lymphocytes 19 % (21-51); MDiff Complete? YES; Mean Corpuscular HGB CONC 31.7 g/dL (32.0-36.0); Mean Corpuscular Hemoglobin 24.5 pg (27.0-31.0); Mean Corpuscular Volume 77.2 fL (78.0-98.0); Mean Platelet Volume 7.6 fL (7.4-10.4); Metamyelocyte 1 % (0-0); Microcytosis SLIGHT = 6-15 cells (100X) (0-5/hpf); Monocytes 7 % (0-10); Myelocyte 1 % (0-0); Neutrophil 63 % (42-75); Nucleated RBC 1 % (0); Platelet Count 455 thou/uL (130-400); Platelet Morphology Comment Appears Increased; Polychromasia SLIGHT = 2-3 cells (100X) (0-2/hpf); RBC Distribution Width 14.6 % (11.5-14.5); Reactive Lymphocytes 2 % (0-10); Red Blood Cell (RBC) Count 4.68 mill/uL (4.70-6.10); White Blood Cell (WBC) Count 17.6 thou/uL (4.8-10.8)
[2021-04-04 05:26] LABS: Anion Gap 13 mmol/L (10-20); BUN (Urea Nitrogen) 25 mg/dL (8.9-20.6); CRP (Inflammatory) 3.06 mg/dL (= or < 0.5); Calc. Creatinine Clearance 153 mL/min (70-130); Calcium 8.1 mg/dL (7.8-10.44); Carbon Dioxide 24 mmol/L (22-29); Chloride 103 mmol/L (98-107); Glucose 165 mg/dL (70-105); Potassium 4.8 mmol/L (3.5-5.1); Sodium 135 mmol/L (136-145)
[2021-04-04] MEDS: HumaLOG 300 UNITS/3 ML VIAL SC PRN ×4 (06:09→20:10)
[2021-04-04] MEDS: Aspirin Chewable 81 MG TAB PO SCH (09:28)
[2021-04-04] MEDS: BARICITINIB 2 MG TAB PO SCH (09:29)
[2021-04-04] MEDS: Enoxaparin Sodium 80 MG/0.8 ML SYRINGE SC SCH ×2 (09:30→19:58)
[2021-04-04] MEDS: cefTRIAXone\\ROCEPHIN 1 GM in Sodium Chloride 0.9% 100 ML IVPB SCH (09:30)
[2021-04-04] MEDS: Azithromycin 500 MG in Sodium Chloride 0.9% 250 ML 250 ML IVPB SCH (09:31)
[2021-04-04] MEDS: Carvedilol 6.25 MG TAB PO SCH ×3 (09:34→16:47)
[2021-04-04] MEDS: methylPREDNISolone Sod Succ/PF 125 MG in Sodium Chloride 0.9% 250 ML 250 ML IVPB SCH (19:57)
[2021-04-05] MEDS: Benzonatate 100 MG CAP PO PRN ×3 (02:35→20:41)
[2021-04-05] MEDS: HumaLOG 300 UNITS/3 ML VIAL SC PRN ×3 (06:12→17:55)
[2021-04-05 06:39] LABS: Hemoglobin 12.5 g/dL (14.0-18.0); Hypochromia SLIGHT = 6-15 cells (100X) (0-5/hpf); Lymphocytes 24 % (21-51); MDiff Complete? YES; Mean Corpuscular HGB CONC 32.3 g/dL (32.0-36.0); Mean Corpuscular Hemoglobin 24.8 pg (27.0-31.0); Mean Corpuscular Volume 76.7 fL (78.0-98.0); Mean Platelet Volume 7.5 fL (7.4-10.4); Monocytes 14 % (0-10); Neutrophil 60 % (42-75); Platelet Count 550 thou/uL (130-400); Platelet Morphology Comment Appears Increased; RBC Distribution Width 14.5 % (11.5-14.5); Reactive Lymphocytes 2 % (0-10); Red Blood Cell (RBC) Count 5.04 mill/uL (4.70-6.10); White Blood Cell (WBC) Count 21.8 thou/uL (4.8-10.8)
[2021-04-05 06:46] LABS: Anion Gap 12 mmol/L (10-20); BUN (Urea Nitrogen) 26 mg/dL (8.9-20.6); CRP (Inflammatory) 1.54 mg/dL (= or < 0.5); Calc. Creatinine Clearance 146 mL/min (70-130); Calcium 8.3 mg/dL (7.8-10.44); Carbon Dioxide 26 mmol/L (22-29); Chloride 102 mmol/L (98-107); Glucose 206 mg/dL (70-105); Potassium 4.7 mmol/L (3.5-5.1); Sodium 135 mmol/L (136-145)
[2021-04-05] MEDS: BARICITINIB 2 MG TAB PO SCH (10:15)
[2021-04-05] MEDS: Carvedilol 6.25 MG TAB PO SCH ×2 (10:15→10:48)
[2021-04-05] MEDS: Aspirin Chewable 81 MG TAB PO SCH (10:15)
[2021-04-05] MEDS: Enoxaparin Sodium 80 MG/0.8 ML SYRINGE SC SCH ×2 (10:16→20:19)
[2021-04-05] MEDS: cefTRIAXone\\ROCEPHIN 1 GM in Sodium Chloride 0.9% 100 ML IVPB SCH (10:16)
[2021-04-05] MEDS: Azithromycin 500 MG in Sodium Chloride 0.9% 250 ML 250 ML IVPB SCH (12:12)
[2021-04-05] MEDS: Carvedilol 3.125 MG TAB PO SCH ×2 (17:55)
[2021-04-05] MEDS ORDERED: HumaLOG 300 UNITS/3 ML VIAL SC SCH (21:30)
[2021-04-05] MEDS: methylPREDNISolone Sod Succ/PF 125 MG in Sodium Chloride 0.9% 250 ML 250 ML IVPB SCH (23:30)
[2021-04-06] MEDS: Benzonatate 100 MG CAP PO PRN ×2 (00:02→10:14)
[2021-04-06] MEDS: Acetaminophen 325 MG TAB PO PRN ×3 (04:42→20:39)
[2021-04-06 06:15] LABS: Hemoglobin 12.8 g/dL (14.0-18.0); Mean Corpuscular HGB CONC 31.5 g/dL (32.0-36.0); Mean Corpuscular Volume 76.2 fL (78.0-98.0); Mean Platelet Volume 7.8 fL (7.4-10.4); Platelet Count 561 thou/uL (130-400); RBC Distribution Width 14.7 % (11.5-14.5); Red Blood Cell (RBC) Count 5.33 mill/uL (4.70-6.10); White Blood Cell (WBC) Count 24.6 thou/uL (4.8-10.8)
[2021-04-06 06:16] LABS: Band 5 % (5-11); Lymphocytes 2 % (21-51); MDiff Complete? YES; Metamyelocyte 2 % (0-0); Monocytes 3 % (0-10); Myelocyte 1 % (0-0); Neutrophil 87 % (42-75); Platelet Morphology Comment Appears Increased
[2021-04-06 06:19] LABS: Anion Gap 16 mmol/L (10-20); BUN (Urea Nitrogen) 27 mg/dL (8.9-20.6); CRP (Inflammatory) 0.93 mg/dL (= or < 0.5); Calc. Creatinine Clearance 163 mL/min (70-130); Calcium 8.7 mg/dL (7.8-10.44); Carbon Dioxide 19 mmol/L (22-29); Chloride 105 mmol/L (98-107); Glucose 157 mg/dL (70-105); Potassium 4.9 mmol/L (3.5-5.1); Sodium 135 mmol/L (136-145)
[2021-04-06] MEDS: Aspirin Chewable 81 MG TAB PO SCH (08:32)
[2021-04-06] MEDS: BARICITINIB 2 MG TAB PO SCH (08:32)
[2021-04-06] MEDS: Amlodipine 10 MG TAB PO SCH (08:32)
[2021-04-06] MEDS: Enoxaparin Sodium 80 MG/0.8 ML SYRINGE SC SCH ×2 (08:32→20:39)
[2021-04-06] MEDS: Carvedilol 3.125 MG TAB PO SCH ×2 (08:32→16:54)
[2021-04-06] MEDS: cefTRIAXone\\ROCEPHIN 1 GM in Sodium Chloride 0.9% 100 ML IVPB SCH (10:14)
[2021-04-06] MEDS: Azithromycin 500 MG in Sodium Chloride 0.9% 250 ML 250 ML IVPB SCH (11:06)
[2021-04-06] MEDS: HumaLOG 300 UNITS/3 ML VIAL SC PRN ×3 (11:45→20:42)
[2021-04-06] MEDS: methylPREDNISolone Sod Succ/PF 125 MG in Sodium Chloride 0.9% 250 ML 250 ML IVPB SCH (20:39)
[2021-04-06] MEDS: guaiFENesin/Codeine 200 mg/20 mg 10 ml Cup PO PRN (20:39)
[2021-04-07] MEDS: guaiFENesin/Codeine 200 mg/20 mg 10 ml Cup PO PRN ×2 (04:16→20:09)
[2021-04-07 06:20] LABS: Band 7 % (5-11); Hemoglobin 13.3 g/dL (14.0-18.0); Lymphocytes 6 % (21-51); MDiff Complete? YES; Mean Corpuscular HGB CONC 31.4 g/dL (32.0-36.0); Mean Corpuscular Hemoglobin 24.2 pg (27.0-31.0); Mean Corpuscular Volume 77.1 fL (78.0-98.0); Mean Platelet Volume 7.7 fL (7.4-10.4); Monocytes 13 % (0-10); Neutrophil 74 % (42-75); Platelet Count 548 thou/uL (130-400); Platelet Morphology Comment Appears Increased; RBC Distribution Width 15.1 % (11.5-14.5); RBC Morphology Normal; Red Blood Cell (RBC) Count 5.48 mill/uL (4.70-6.10); White Blood Cell (WBC) Count 20.9 thou/uL (4.8-10.8)
[2021-04-07 06:22] LABS: Anion Gap 15 mmol/L (10-20); BUN (Urea Nitrogen) 30 mg/dL (8.9-20.6); Calc. Creatinine Clearance 152 mL/min (70-130); Calcium 8.7 mg/dL (7.8-10.44); Carbon Dioxide 21 mmol/L (22-29); Chloride 105 mmol/L (98-107); Glucose 189 mg/dL (70-105); Potassium 4.9 mmol/L (3.5-5.1); Sodium 136 mmol/L (136-145)
[2021-04-07 06:23] LABS: ALT (SGPT) 21 U/L (8-55); AST (SGOT) 8 U/L (5-34); Albumin 3.5 g/dL (3.5-5.0); Alkaline Phosphatase 103 U/L (40-110); Bilirubin, Direct 0.3 mg/dL (0.1-0.3); Bilirubin, Total 0.6 mg/dL (0.2-1.2); Protein, Total 7.3 g/dL (6.0-8.3)
[2021-04-07] MEDS: HumaLOG 300 UNITS/3 ML VIAL SC PRN ×4 (06:41→22:39)
[2021-04-07] MEDS: Amlodipine 10 MG TAB PO SCH (09:24)
[2021-04-07] MEDS: Benzonatate 100 MG CAP PO PRN ×2 (09:24→20:09)
[2021-04-07] MEDS: Carvedilol 3.125 MG TAB PO SCH ×2 (09:24→18:00)
[2021-04-07] MEDS: Enoxaparin Sodium 80 MG/0.8 ML SYRINGE SC SCH ×2 (09:24→20:09)
[2021-04-07] MEDS: Aspirin Chewable 81 MG TAB PO SCH (09:24)
[2021-04-07] MEDS: cefTRIAXone\\ROCEPHIN 1 GM in Sodium Chloride 0.9% 100 ML IVPB SCH (10:16)
[2021-04-07] MEDS: Azithromycin 500 MG in Sodium Chloride 0.9% 250 ML 250 ML IVPB SCH (10:42)
[2021-04-07] MEDS: BARICITINIB 2 MG TAB PO SCH (15:18)
[2021-04-07] MEDS: Mometasone 200 MCG/Formoterol 5 MCG 120 PUFF INHALER INH SCH (18:32)
[2021-04-07] MEDS: methylPREDNISolone Sod Succ/PF 125 MG in Sodium Chloride 0.9% 250 ML 250 ML IVPB SCH (20:09)
[2021-04-07] MEDS: Acetaminophen 325 MG TAB PO PRN (20:27)
[2021-04-08] MEDS: guaiFENesin/Codeine 200 mg/20 mg 10 ml Cup PO PRN ×3 (04:38→21:05)
[2021-04-08] MEDS: Acetaminophen 325 MG TAB PO PRN ×3 (04:38→21:05)
[2021-04-08] MEDS: Lorazepam 2 MG/ML VIAL SLOW IVP PRN (04:47)
[2021-04-08 05:36] LABS: Band 1 % (5-11); Hemoglobin 12.6 g/dL (14.0-18.0); Lymphocytes 5 % (21-51); MDiff Complete? YES; Mean Corpuscular HGB CONC 31.3 g/dL (32.0-36.0); Mean Corpuscular Hemoglobin 24.3 pg (27.0-31.0); Mean Corpuscular Volume 77.7 fL (78.0-98.0); Mean Platelet Volume 7.7 fL (7.4-10.4); Microcytosis SLIGHT = 6-15 cells (100X) (0-5/hpf); Monocytes 3 % (0-10); Myelocyte 2 % (0-0); Neutrophil 88 % (42-75); Platelet Count 510 thou/uL (130-400); Platelet Morphology Comment Appears Increased; RBC Distribution Width 15.2 % (11.5-14.5); Reactive Lymphocytes 1 % (0-10); Red Blood Cell (RBC) Count 5.17 mill/uL (4.70-6.10); White Blood Cell (WBC) Count 19.3 thou/uL (4.8-10.8)
[2021-04-08 05:49] LABS: Anion Gap 10 mmol/L (10-20); BUN (Urea Nitrogen) 31 mg/dL (8.9-20.6); Calc. Creatinine Clearance 81 mL/min (70-130); Calcium 8.5 mg/dL (7.8-10.44); Carbon Dioxide 24 mmol/L (22-29); Chloride 105 mmol/L (98-107); Glucose 223 mg/dL (70-105); Potassium 4.8 mmol/L (3.5-5.1); Sodium 134 mmol/L (136-145)
[2021-04-08] MEDS: HumaLOG 300 UNITS/3 ML VIAL SC PRN ×3 (06:38→17:16)
[2021-04-08] MEDS: Mometasone 200 MCG/Formoterol 5 MCG 120 PUFF INHALER INH SCH ×2 (06:39→17:17)
[2021-04-08] MEDS: Amlodipine 10 MG TAB PO SCH (08:45)
[2021-04-08] MEDS: Carvedilol 3.125 MG TAB PO SCH (08:45)
[2021-04-08] MEDS: Aspirin Chewable 81 MG TAB PO SCH (08:46)
[2021-04-08] MEDS: Benzonatate 100 MG CAP PO PRN ×3 (08:46→21:05)
[2021-04-08] MEDS: BARICITINIB 2 MG TAB PO SCH (08:46)
[2021-04-08] MEDS: Enoxaparin Sodium 80 MG/0.8 ML SYRINGE SC SCH ×2 (08:46→21:05)
[2021-04-08] MEDS: cefTRIAXone\\ROCEPHIN 1 GM in Sodium Chloride 0.9% 100 ML IVPB SCH (10:19)
[2021-04-08] MEDS: Azithromycin 500 MG in Sodium Chloride 0.9% 250 ML 250 ML IVPB SCH (10:51)
[2021-04-08] MEDS ORDERED: HumaLOG 300 UNITS/3 ML VIAL SC PRN (15:31)
[2021-04-08] MEDS: Carvedilol 6.25 MG TAB PO SCH (17:15)
[2021-04-08] MEDS: methylPREDNISolone Sod Succ/PF 125 MG in Sodium Chloride 0.9% 250 ML 250 ML IVPB SCH (21:06)
[2021-04-09] MEDS: Acetaminophen 325 MG TAB PO PRN ×2 (05:11→17:07)
[2021-04-09] MEDS: guaiFENesin/Codeine 200 mg/20 mg 10 ml Cup PO PRN ×3 (05:11→20:48)
[2021-04-09] MEDS: Lorazepam 2 MG/ML VIAL SLOW IVP PRN ×2 (05:12→22:01)
[2021-04-09 05:42] LABS: Hemoglobin 12.6 g/dL (14.0-18.0); Lymphocytes 14 % (21-51); MDiff Complete? YES; Mean Corpuscular HGB CONC 31.1 g/dL (32.0-36.0); Mean Corpuscular Hemoglobin 24.3 pg (27.0-31.0); Mean Corpuscular Volume 78.2 fL (78.0-98.0); Mean Platelet Volume 7.7 fL (7.4-10.4); Monocytes 11 % (0-10); Neutrophil 75 % (42-75); Platelet Count 468 thou/uL (130-400); Platelet Morphology Comment Appears Increased; RBC Distribution Width 15.1 % (11.5-14.5); RBC Morphology Normal; Red Blood Cell (RBC) Count 5.18 mill/uL (4.70-6.10); White Blood Cell (WBC) Count 14.9 thou/uL (4.8-10.8)
[2021-04-09 05:45] LABS: Anion Gap 11 mmol/L (10-20); BUN (Urea Nitrogen) 24 mg/dL (8.9-20.6); Calc. Creatinine Clearance 145 mL/min (70-130); Calcium 8.4 mg/dL (7.8-10.44); Carbon Dioxide 26 mmol/L (22-29); Chloride 102 mmol/L (98-107); Glucose 222 mg/dL (70-105); Sodium 134 mmol/L (136-145)
[2021-04-09] MEDS: HumaLOG 300 UNITS/3 ML VIAL SC PRN ×3 (06:21→17:08)
[2021-04-09] MEDS: Mometasone 200 MCG/Formoterol 5 MCG 120 PUFF INHALER INH SCH ×2 (06:25→17:09)
[2021-04-09] MEDS: BARICITINIB 2 MG TAB PO SCH (08:51)
[2021-04-09] MEDS: Aspirin Chewable 81 MG TAB PO SCH (08:51)
[2021-04-09] MEDS: Amlodipine 10 MG TAB PO SCH (08:51)
[2021-04-09] MEDS: Carvedilol 6.25 MG TAB PO SCH ×2 (08:51→17:07)
[2021-04-09] MEDS: Enoxaparin Sodium 80 MG/0.8 ML SYRINGE SC SCH ×2 (08:52→20:34)
[2021-04-09] MEDS: cefTRIAXone\\ROCEPHIN 1 GM in Sodium Chloride 0.9% 100 ML IVPB SCH (08:52)
[2021-04-09 10:34] VITALS: BMI 37.4
[2021-04-09] MEDS: Azithromycin 500 MG in Sodium Chloride 0.9% 250 ML 250 ML IVPB SCH (11:22)
[2021-04-09] MEDS ORDERED: hydrALAZINE 20 MG/ML VIAL SLOW IVP PRN (16:27)
[2021-04-09] MEDS: Benzonatate 100 MG CAP PO PRN ×2 (17:07→21:56)
[2021-04-09] MEDS: Lantus 1000 UNITS/10 ML VIAL SC SCH (20:48)
[2021-04-09] MEDS: methylPREDNISolone Sod Succ/PF 125 MG in Sodium Chloride 0.9% 250 ML 250 ML IVPB SCH (20:49)
[2021-04-10] MEDS: guaiFENesin/Codeine 200 mg/20 mg 10 ml Cup PO PRN ×3 (03:55→21:59)
[2021-04-10] MEDS: Benzonatate 100 MG CAP PO PRN ×4 (03:55→21:56)
[2021-04-10] MEDS: Mometasone 200 MCG/Formoterol 5 MCG 120 PUFF INHALER INH SCH ×2 (05:29→16:51)
[2021-04-10] MEDS: HumaLOG 300 UNITS/3 ML VIAL SC PRN ×4 (05:55→21:58)
[2021-04-10 07:17] LABS: Chloride 104 mmol/L (98-107); Potassium 4.8 mmol/L (3.5-5.1); Sodium 134 mmol/L (136-145)
[2021-04-10 07:19] LABS: Albumin 3.4 g/dL (3.5-5.0)
[2021-04-10 07:21] LABS: Calcium 8.4 mg/dL (7.8-10.44); Glucose 298 mg/dL (70-105)
[2021-04-10 07:22] LABS: Protein, Total 6.4 g/dL (6.0-8.3)
[2021-04-10 07:23] LABS: Bilirubin, Total 0.5 mg/dL (0.2-1.2); Carbon Dioxide 24 mmol/L (22-29)
[2021-04-10 07:24] LABS: Alkaline Phosphatase 103 U/L (40-110)
[2021-04-10 07:25] LABS: Calc. Creatinine Clearance 140 mL/min (70-130)
[2021-04-10 07:26] LABS: BUN (Urea Nitrogen) 24 mg/dL (8.9-20.6)
[2021-04-10 07:27] LABS: ALT (SGPT) 19 U/L (8-55); AST (SGOT) 6 U/L (5-34); Bilirubin, Direct 0.3 mg/dL (0.1-0.3)
[2021-04-10 07:35] LABS: Anion Gap 11 mmol/L (10-20)
[2021-04-10 07:58] LABS: Mean Corpuscular HGB CONC 32.7 g/dL (32.0-36.0); Mean Corpuscular Hemoglobin 25.2 pg (27.0-31.0); Mean Corpuscular Volume 76.9 fL (78.0-98.0); Mean Platelet Volume 7.5 fL (7.4-10.4); Platelet Count 448 thou/uL (130-400); RBC Distribution Width 15.5 % (11.5-14.5); Red Blood Cell (RBC) Count 5.19 mill/uL (4.70-6.10); White Blood Cell (WBC) Count 16.2 thou/uL (4.8-10.8)
[2021-04-10] MEDS: Aspirin Chewable 81 MG TAB PO SCH (07:58)
[2021-04-10] MEDS: Amlodipine 10 MG TAB PO SCH (07:58)
[2021-04-10] MEDS: BARICITINIB 2 MG TAB PO SCH (07:58)
[2021-04-10] MEDS: Carvedilol 6.25 MG TAB PO SCH ×2 (07:59→16:48)
[2021-04-10] MEDS: Enoxaparin Sodium 80 MG/0.8 ML SYRINGE SC SCH ×2 (07:59→21:56)
[2021-04-10 08:00] LABS: Band 1 % (5-11); Lymphocytes 2 % (21-51); MDiff Complete? YES; Microcytosis SLIGHT = 6-15 cells (100X) (0-5/hpf); Monocytes 6 % (0-10); Myelocyte 2 % (0-0); Neutrophil 89 % (42-75); Platelet Morphology Comment Appears Increased; Polychromasia SLIGHT = 2-3 cells (100X) (0-2/hpf)
[2021-04-10] MEDS: Lantus 1000 UNITS/10 ML VIAL SC SCH ×2 (08:00→21:57)
[2021-04-10] MEDS: cefTRIAXone\\ROCEPHIN 1 GM in Sodium Chloride 0.9% 100 ML IVPB SCH (10:20)
[2021-04-10] MEDS: Azithromycin 500 MG in Sodium Chloride 0.9% 250 ML 250 ML IVPB SCH (11:04)
[2021-04-10] MEDS: Acetaminophen 325 MG TAB PO PRN (16:47)
[2021-04-10] MEDS: methylPREDNISolone Sod Succ/PF 125 MG in Sodium Chloride 0.9% 250 ML 250 ML IVPB SCH (21:56)
[2021-04-11] MEDS: guaiFENesin/Codeine 200 mg/20 mg 10 ml Cup PO PRN ×4 (03:42→21:50)
[2021-04-11] MEDS: HumaLOG 300 UNITS/3 ML VIAL SC PRN ×4 (06:35→21:15)
[2021-04-11] MEDS: Mometasone 200 MCG/Formoterol 5 MCG 120 PUFF INHALER INH SCH ×2 (06:36→16:52)
[2021-04-11] MEDS: BARICITINIB 2 MG TAB PO SCH (08:50)
[2021-04-11] MEDS: Benzonatate 100 MG CAP PO PRN ×3 (08:50→21:14)
[2021-04-11] MEDS: Carvedilol 6.25 MG TAB PO SCH ×2 (08:50→16:48)
[2021-04-11] MEDS: Aspirin Chewable 81 MG TAB PO SCH (08:50)
[2021-04-11] MEDS: Amlodipine 10 MG TAB PO SCH (08:51)
[2021-04-11] MEDS: Acetaminophen 325 MG TAB PO PRN (08:52)
[2021-04-11] MEDS: Enoxaparin Sodium 80 MG/0.8 ML SYRINGE SC SCH ×2 (08:52→21:14)
[2021-04-11] MEDS: Lantus 1000 UNITS/10 ML VIAL SC SCH ×2 (08:54→21:14)
[2021-04-11 18:55] LABS: Anion Gap 13 mmol/L (10-20); BUN (Urea Nitrogen) 24 mg/dL (8.9-20.6); Calc. Creatinine Clearance 158 mL/min (70-130); Calcium 8.6 mg/dL (7.8-10.44); Carbon Dioxide 25 mmol/L (22-29); Chloride 101 mmol/L (98-107); Glucose 251 mg/dL (70-105); Potassium 4.8 mmol/L (3.5-5.1); Sodium 134 mmol/L (136-145)
[2021-04-11 19:06] LABS: Band 4 % (5-11); Hemoglobin 13.3 g/dL (14.0-18.0); Lymphocytes 7 % (21-51); MDiff Complete? YES; Mean Corpuscular HGB CONC 32.6 g/dL (32.0-36.0); Mean Corpuscular Hemoglobin 25.3 pg (27.0-31.0); Mean Corpuscular Volume 77.4 fL (78.0-98.0); Mean Platelet Volume 7.7 fL (7.4-10.4); Monocytes 6 % (0-10); Neutrophil 83 % (42-75); Platelet Count 415 thou/uL (130-400); Platelet Morphology Comment Appears Increased; RBC Distribution Width 15.8 % (11.5-14.5); RBC Morphology Normal; Red Blood Cell (RBC) Count 5.27 mill/uL (4.70-6.10)
[2021-04-11] MEDS: methylPREDNISolone Sod Succ/PF 125 MG in Sodium Chloride 0.9% 250 ML 250 ML IVPB SCH (21:14)
[2021-04-12] MEDS: HumaLOG 300 UNITS/3 ML VIAL SC PRN ×4 (06:37→20:22)
[2021-04-12] MEDS: Mometasone 200 MCG/Formoterol 5 MCG 120 PUFF INHALER INH SCH ×2 (06:38→17:14)
[2021-04-12] MEDS: BARICITINIB 2 MG TAB PO SCH (07:59)
[2021-04-12] MEDS: Aspirin Chewable 81 MG TAB PO SCH (07:59)
[2021-04-12] MEDS: Carvedilol 6.25 MG TAB PO SCH ×2 (07:59→16:03)
[2021-04-12] MEDS: Enoxaparin Sodium 80 MG/0.8 ML SYRINGE SC SCH ×2 (08:00→20:10)
[2021-04-12] MEDS: Amlodipine 10 MG TAB PO SCH (08:00)
[2021-04-12] MEDS: Lantus 1000 UNITS/10 ML VIAL SC SCH ×2 (08:03→20:10)
[2021-04-12] MEDS: guaiFENesin/Codeine 200 mg/20 mg 10 ml Cup PO PRN ×2 (08:07→20:10)
[2021-04-12] MEDS ORDERED: Lorazepam 2 MG/ML VIAL SLOW IVP PRN (09:48)
[2021-04-12 11:16] LABS: Anion Gap 11 mmol/L (10-20); BUN (Urea Nitrogen) 26 mg/dL (8.9-20.6); Calc. Creatinine Clearance 160 mL/min (70-130); Calcium 8.6 mg/dL (7.8-10.44); Carbon Dioxide 27 mmol/L (22-29); Chloride 100 mmol/L (98-107); Glucose 227 mg/dL (70-105); Potassium 5.3 mmol/L (3.5-5.1); Sodium 133 mmol/L (136-145)
[2021-04-12 11:43] LABS: Band 3 % (5-11); Hemoglobin 13.2 g/dL (14.0-18.0); Lymphocytes 3 % (21-51); MDiff Complete? YES; Mean Corpuscular HGB CONC 32.3 g/dL (32.0-36.0); Mean Corpuscular Volume 77.6 fL (78.0-98.0); Mean Platelet Volume 7.6 fL (7.4-10.4); Monocytes 2 % (0-10); Neutrophil 92 % (42-75); Platelet Count 407 thou/uL (130-400); Red Blood Cell (RBC) Count 5.28 mill/uL (4.70-6.10)
[2021-04-12] MEDS ORDERED: Sodium Chloride 0.9% 500 ML IV SCH (13:00)
[2021-04-12] MEDS: Sodium Chloride 0.9% 1,000 ML IV SCH (14:22)
[2021-04-12] MEDS: Benzonatate 100 MG CAP PO PRN ×2 (14:25→20:10)
[2021-04-12] MEDS: methylPREDNISolone Sod Succ/PF 125 MG in Sodium Chloride 0.9% 250 ML 250 ML IVPB SCH (18:34)
[2021-04-12 21:32] LABS: Anion Gap 12 mmol/L (10-20); BUN (Urea Nitrogen) 28 mg/dL (8.9-20.6); Calc. Creatinine Clearance 132 mL/min (70-130); Calcium 8.6 mg/dL (7.8-10.44); Carbon Dioxide 25 mmol/L (22-29); Chloride 102 mmol/L (98-107); Glucose 358 mg/dL (70-105); Potassium 5.1 mmol/L (3.5-5.1); Sodium 134 mmol/L (136-145)
[2021-04-13 06:12] LABS: ALT (SGPT) 22 U/L (8-55); AST (SGOT) 7 U/L (5-34); Albumin 3.2 g/dL (3.5-5.0); Alkaline Phosphatase 82 U/L (40-110); Anion Gap 6 mmol/L (10-20); BUN (Urea Nitrogen) 26 mg/dL (8.9-20.6); Bilirubin, Direct 0.3 mg/dL (0.1-0.3); Bilirubin, Total 0.7 mg/dL (0.2-1.2); Calc. Creatinine Clearance 169 mL/min (70-130); Calcium 8.4 mg/dL (7.8-10.44); Carbon Dioxide 29 mmol/L (22-29); Chloride 103 mmol/L (98-107); Glucose 235 mg/dL (70-105); Potassium 4.7 mmol/L (3.5-5.1); Protein, Total 6.1 g/dL (6.0-8.3); Sodium 133 mmol/L (136-145)
[2021-04-13 06:33] LABS: Hemoglobin 12.7 g/dL (14.0-18.0); Mean Corpuscular HGB CONC 32.3 g/dL (32.0-36.0); Mean Corpuscular Hemoglobin 25.1 pg (27.0-31.0); Mean Corpuscular Volume 77.7 fL (78.0-98.0); Mean Platelet Volume 7.9 fL (7.4-10.4); Platelet Count 330 thou/uL (130-400); RBC Distribution Width 16.2 % (11.5-14.5); Red Blood Cell (RBC) Count 5.07 mill/uL (4.70-6.10); White Blood Cell (WBC) Count 11.8 thou/uL (4.8-10.8)
[2021-04-13] MEDS: HumaLOG 300 UNITS/3 ML VIAL SC PRN ×4 (06:42→21:22)
[2021-04-13] MEDS: Sodium Chloride 0.9% 1,000 ML IV SCH (06:43)
[2021-04-13] MEDS: Mometasone 200 MCG/Formoterol 5 MCG 120 PUFF INHALER INH SCH ×3 (06:44→19:00)
[2021-04-13 06:47] LABS: Lymphocytes 9 % (21-51); MDiff Complete? YES; Monocytes 2 % (0-10); Neutrophil 89 % (42-75)
[2021-04-13] MEDS: Amlodipine 10 MG TAB PO SCH (09:18)
[2021-04-13] MEDS: Carvedilol 6.25 MG TAB PO SCH ×2 (09:18→17:01)
[2021-04-13] MEDS: Aspirin Chewable 81 MG TAB PO SCH (09:18)
[2021-04-13] MEDS: Enoxaparin Sodium 80 MG/0.8 ML SYRINGE SC SCH (09:19)
[2021-04-13] MEDS: BARICITINIB 2 MG TAB PO SCH (09:19)
[2021-04-13] MEDS: Lantus 1000 UNITS/10 ML VIAL SC SCH (09:20)
[2021-04-13] MEDS: guaiFENesin/Codeine 200 mg/20 mg 10 ml Cup PO PRN ×2 (09:24→21:20)
[2021-04-13] MEDS ORDERED: Dexamethasone 10 MG/ML VIAL SLOW IVP SCH (20:00)
[2021-04-13] MEDS ORDERED: Lantus 1000 UNITS/10 ML VIAL SC SCH (21:00)
[2021-04-13] MEDS: Benzonatate 100 MG CAP PO PRN (21:21)
[2021-04-13] MEDS: Enoxaparin Sodium 40 MG/0.4 ML SYRINGE SC SCH (21:21)
[2021-04-14] MEDS: HumaLOG 300 UNITS/3 ML VIAL SC PRN ×4 (05:28→20:52)
[2021-04-14 05:59] LABS: Hemoglobin 12.9 g/dL (14.0-18.0); Mean Corpuscular HGB CONC 31.6 g/dL (32.0-36.0); Mean Corpuscular Hemoglobin 24.5 pg (27.0-31.0); Mean Corpuscular Volume 77.6 fL (78.0-98.0); Mean Platelet Volume 8.8 fL (7.4-10.4); Platelet Count 283 thou/uL (130-400); RBC Distribution Width 16.2 % (11.5-14.5); Red Blood Cell (RBC) Count 5.24 mill/uL (4.70-6.10); White Blood Cell (WBC) Count 11.4 thou/uL (4.8-10.8)
[2021-04-14 06:21] LABS: Band 2 % (5-11); Lymphocytes 5 % (21-51); MDiff Complete? YES; Monocytes 3 % (0-10); Neutrophil 89 % (42-75); Reactive Lymphocytes 1 % (0-10)
[2021-04-14] MEDS: Amlodipine 10 MG TAB PO SCH (09:08)
[2021-04-14] MEDS: Aspirin Chewable 81 MG TAB PO SCH (09:08)
[2021-04-14] MEDS: Carvedilol 6.25 MG TAB PO SCH (09:09)
[2021-04-14] MEDS: Enoxaparin Sodium 40 MG/0.4 ML SYRINGE SC SCH ×2 (09:09→20:46)
[2021-04-14] MEDS: Lantus 1000 UNITS/10 ML VIAL SC SCH (09:10)
[2021-04-14 10:12] LABS: Anion Gap 13 mmol/L (10-20); BUN (Urea Nitrogen) 26 mg/dL (8.9-20.6); Calc. Creatinine Clearance 148 mL/min (70-130); Calcium 8.8 mg/dL (7.8-10.44); Carbon Dioxide 25 mmol/L (22-29); Chloride 99 mmol/L (98-107); Glucose 233 mg/dL (70-105); Potassium 4.8 mmol/L (3.5-5.1); Sodium 132 mmol/L (136-145)
[2021-04-14] MEDS: Carvedilol 25 MG TAB PO SCH (16:48)
[2021-04-14] MEDS: guaiFENesin/Codeine 200 mg/20 mg 10 ml Cup PO PRN ×2 (16:53→20:46)
[2021-04-14] MEDS: Mometasone 200 MCG/Formoterol 5 MCG 120 PUFF INHALER INH SCH (18:20)
[2021-04-14] MEDS: Benzonatate 100 MG CAP PO PRN (20:46)
[2021-04-15] MEDS: Mometasone 200 MCG/Formoterol 5 MCG 120 PUFF INHALER INH SCH (06:05)
[2021-04-15] MEDS: guaiFENesin/Codeine 200 mg/20 mg 10 ml Cup PO PRN (06:59)
[2021-04-15 07:15] LABS: Hemoglobin 13.2 g/dL (14.0-18.0); Mean Corpuscular HGB CONC 32.1 g/dL (32.0-36.0); Mean Corpuscular Hemoglobin 24.7 pg (27.0-31.0); Mean Platelet Volume 8.1 fL (7.4-10.4); Platelet Count 268 thou/uL (130-400); RBC Distribution Width 16.8 % (11.5-14.5); Red Blood Cell (RBC) Count 5.36 mill/uL (4.70-6.10); White Blood Cell (WBC) Count 11.6 thou/uL (4.8-10.8)
[2021-04-15 07:17] LABS: Anion Gap 9 mmol/L (10-20); BUN (Urea Nitrogen) 27 mg/dL (8.9-20.6); Calc. Creatinine Clearance 130 mL/min (70-130); Calcium 8.6 mg/dL (7.8-10.44); Carbon Dioxide 30 mmol/L (22-29); Chloride 103 mmol/L (98-107); Glucose 119 mg/dL (70-105); Potassium 4.4 mmol/L (3.5-5.1); Sodium 138 mmol/L (136-145)
[2021-04-15] MEDS ORDERED: predniSONE 20 MG TAB PO SCH (08:00)
[2021-04-15] MEDS: Aspirin Chewable 81 MG TAB PO SCH (08:53)
[2021-04-15] MEDS: Carvedilol 25 MG TAB PO SCH (08:54)
[2021-04-15] MEDS: Amlodipine 10 MG TAB PO SCH (08:54)
[2021-04-15] MEDS: Enoxaparin Sodium 40 MG/0.4 ML SYRINGE SC SCH (08:54)
[2021-04-15] MEDS ORDERED: Lantus 1000 UNITS/10 ML VIAL SC SCH (09:00)
[2021-04-15 09:43] LABS: Eosinophils 2 % (0-10); Lymphocytes 14 % (21-51); MDiff Complete? YES; Metamyelocyte 1 % (0-0); Microcytosis SLIGHT = 6-15 cells (100X) (0-5/hpf); Monocytes 3 % (0-10); Myelocyte 1 % (0-0); Neutrophil 79 % (42-75); Platelet Morphology Comment Appears Adequate; Polychromasia SLIGHT = 2-3 cells (100X) (0-2/hpf)
[2021-04-15 16:08] VITALS: BP 143/89; TEMP 98.3
== END 2021-04-15 16:52 | disposition home or self-care (01) | DRG 177 ==
LOC: ERS 00:19 → ERHOLD 03:58 → T4-A 11:32 → IMCU/EMU 04-01 12:50 → 2SW 04-05 15:36
PROVIDERS: ADMIT Student in an Organized Health Care Education/Training Program; ATTEND Internal Medicine
PROC: 8E0ZXY6 Isolation (ICD-10-PCS; principal; 2021-03-31)
PROC: XW0DXM6 Introduction of Baricitinib into Mouth and Pharynx, External Approach, New Technology Group 6 (ICD-10-PCS; 2021-04-01)
DX: U07.1 COVID-19 (principal); J96.01 Acute respiratory failure with hypoxia; J12.82 Pneumonia due to coronavirus disease 2019; I13.0 Hypertensive heart and chronic kidney disease with heart failure and stage 1 through stage 4 chronic kidney disease, or unspecified chronic kidney disease; E87.6 Hypokalemia; E66.01 Morbid (severe) obesity due to excess calories; E11.65 Type 2 diabetes mellitus with hyperglycemia; T38.0X5A Adverse effect of glucocorticoids and synthetic analogues, initial encounter; I25.10 Atherosclerotic heart disease of native coronary artery without angina pectoris; N18.2 Chronic kidney disease, stage 2 (mild); F17.210 Nicotine dependence, cigarettes, uncomplicated; Z86.73 Personal history of transient ischemic attack (TIA), and cerebral infarction without residual deficits; I25.2 Old myocardial infarction; Z79.82 Long term (current) use of aspirin; Z79.899 Other long term (current) drug therapy; Z68.35 Body mass index [BMI] 35.0-35.9, adult
CPT/HCPCS: 36415; 36416; 36600; 71045; 71275; 80048; 80053; 80076; 82550; 82728; 82805; 83605; 83880; 84484; 85007; 85025; 85027; 85379; 86140; 93005; 94760; 96374; J0360; J0456; J0696; J1100; J1650; J1815; J2060; J2405; J2930; J3490; J7030; J7050; J7512; U0002

== ENCOUNTER 2023-11-24 09:20 | Emergency (ER) | payer MEDICARE ==
[2023-11-24 10:16] LABS: #Basophils Less than 0.03 10x3/uL (0.0-0.2); %Basophils 0.2 % (0.0-1.0); %Eosinophils 6.8 % (0.0-10.0); %Lymphocytes 5.5 % (21.0-51.0); %Monocytes 5.7 % (0.0-10.0); %Neutrophils 81.5 % (42.0-75.0); Hematocrit 39.9 % (42.0-52.0); Hemoglobin 13.3 g/dL (14.0-18.0); Mean Corpuscular HGB CONC 33.3 g/dL (32.0-36.0); Mean Corpuscular Hemoglobin 25.9 pg (27.0-31.0); Mean Corpuscular Volume 77.6 fL (78.0-98.0); Mean Platelet Volume 9.8 fL (7.4-10.4); Platelet Count 210 10x3/uL (130-400); RBC Distribution Width 14.7 % (11.5-14.5); Red Blood Cell (RBC) Count 5.14 mill/uL (4.70-6.10)
[2023-11-24 10:33] LABS: ALT (SGPT) 53 U/L (8-55); AST (SGOT) 46 U/L (5-34); Albumin 3.4 g/dL (3.5-5.0); Alkaline Phosphatase 131 U/L (40-110); Anion Gap 13 mmol/L (10-20); BUN (Urea Nitrogen) 10 mg/dL (8.4-25.7); Bilirubin, Total 1.2 mg/dL (0.2-1.2); Calc. Creatinine Clearance 0 mL/min (70-130); Carbon Dioxide 23 mmol/L (22-29); Chloride 102 mmol/L (98-107); Estimated GFR 105; Globulin 4.3 g/dL (2.4-3.5); Glucose 148 mg/dL (70-105); Potassium 3.5 mmol/L (3.5-5.1); Protein, Total 7.7 g/dL (6.0-8.3); Sodium 134 mmol/L (136-145)
[2023-11-24 10:58] LABS: Influenza A by NAA Not Detected (NotDetected); Influenza B by NAA Not Detected (NotDetected); SARS-CoV-2 NAA Rapid Test Not Detected (NotDetected)
[2023-11-24 11:08] LABS: Troponin I Less than 0.010 ng/mL (< 0.028)
[2023-11-24] MEDS ORDERED: Acetaminophen 500 MG TAB ONE (12:46)
[2023-11-24] MEDS ORDERED: Ondansetron ODT 4 MG TAB ONE (12:47)
[2023-11-24] MEDS ORDERED: Lidocaine 1% MPF 2 ML VIAL ONE (12:51)
[2023-11-24] MEDS ORDERED: cefTRIAXone (ROCEPHIN) 1 GM VIAL ONE (12:51)
== END 2023-11-24 13:33 | disposition home or self-care (01) ==
LOC: ERS 09:20
DX: J18.9 Pneumonia, unspecified organism (principal); I13.0 Hypertensive heart and chronic kidney disease with heart failure and stage 1 through stage 4 chronic kidney disease, or unspecified chronic kidney disease; I50.9 Heart failure, unspecified; N18.30 Chronic kidney disease, stage 3 unspecified; E11.22 Type 2 diabetes mellitus with diabetic chronic kidney disease; Z79.4 Long term (current) use of insulin; Z79.51 Long term (current) use of inhaled steroids
CPT/HCPCS: 0240U; 71046; 80053; 83880; 84484; 85025; 93005; 96372; 99284; J0696; Q0162